=== PATIENT | female | born 1975 | race Caucasian/White ===

== ENCOUNTER 2019-05-19 19:37 | Observation (INO) | payer BC, MEDICAID ==
[2019-05-19] MEDS ORDERED: NORMAL SALINE 1000 ML 1,000 ML IV ONE (20:08)
--- NOTE | 2019-05-19 20:10 | ER Document Report ---
ED Medical Screen (RME) - General Chief Complaint: Abdominal Pain Stated Complaint: SEVERE ABDOMINAL PAIN POST C SECTION Time Seen by Provider: 05/19/19 20:06 Mode of Arrival: Ambulatory Information source: Patient Notes: 44-year-old female presented to ED for complaint of severe pain right upper quadrant with nausea starting about 640. She states it was a pulling pain underneath of her ribs then it got much worse she got very nauseated. She states she was in charge and got to the point where she had to get up and leave [facility] and it got much worse when she left the [facility]. She states on the right to the hospital she was writhing in pain all the way to the hospital. She states she is just delivered her child 5 weeks ago she has been emptying her bladder with no problems. She states the bladder was injured during her . She is alert oriented respirations regular and unlabored speaking in full sentences. She states the pain is much less now than it was on the way to the hospital. She states she is breast-feeding at this time. I have greeted and performed a rapid initial assessment of this patient. A comprehensive ED assessment and evaluation of the patient, analysis of test results and completion of medical decision making process will be conducted by an additional ED providers. TRAVEL OUTSIDE OF THE [place] IN LAST 30 DAYS: No Physical Exam - Vital signs Vitals: Temp Pulse Resp BP Pulse Ox 98 F 76 18 115/62 100 05/19/19 19:46 05/19/19 19:46 05/19/19 19:46 05/19/19 19:46 05/19/19 19:46 Course - Vital Signs Vital signs: Temp Pulse Resp BP Pulse Ox 98 F 76 18 115/62 100 05/19/19 19:46 05/19/19 19:46 05/19/19 19:46 05/19/19 19:46 05/19/19 19:46
[2019-05-19 20:41] LABS: ABSOLUTE BASOPHILS # (AUTO) 0.1 10^3/uL (0.0-0.2); ABSOLUTE EOSINOPHILS # (AUTO) 0.1 10^3/uL (0.0-0.6); ABSOLUTE LYMPHOCYTES (AUTO) 1.4 10^3/uL (0.5-4.7); ABSOLUTE MONOCYTES (AUTO) 0.8 10^3/uL (0.1-1.4); ABSOLUTE NEUT (AUTO) 11.4 10^3/uL (1.7-8.2); BASOPHILS % (AUTO) 0.5 % (0-2); EOSINOPHILS % (AUTO) 0.7 % (0-6); HEMATOCRIT 37.4 % (36.0-47.0); LYMPHOCYTES % (AUTO) 10.3 % (13-45); MEAN CORPUSCULAR HEMOGLOBIN 26.2 pg (27.0-33.4); MEAN CORPUSCULAR HGB CONC 32.1 g/dL (32.0-36.0); MEAN CORPUSCULAR VOLUME 82 fl (80-97); MONOCYTES % (AUTO) 6.1 % (3-13); PLATELET COUNT 217 10^3/uL (150-450); RED BLOOD COUNT 4.58 10^6/uL (3.72-5.28); RED CELL DISTRIBUTION WIDTH 16.6 % (11.5-14.0); SEGMENTED NEUTROPHILS % (AUTO) 82.4 % (42-78); TOTAL CELLS COUNTED % (AUTO) 100 %; WHITE BLOOD COUNT 13.8 10^3/uL (4.0-10.5)
[2019-05-19 21:13] LABS: APPEARANCE,URINE SLIGHTLY-CLOUDY; BILIRUBIN,URINE NEGATIVE (NEGATIVE); COLOR,URINE YELLOW; GLUCOSE, URINE NEGATIVE (NEGATIVE); KETONES,URINE NEGATIVE (NEGATIVE); LEUKOCYTE ESTERASE,URINE TRACE (NEGATIVE); NITRITE,URINE NEGATIVE (NEGATIVE); PROTEIN,URINE NEGATIVE (NEGATIVE); URINE SPECIFIC GRAVITY 1.015
[2019-05-19 21:31] LABS: ALBUMIN 4.4 g/dL (3.5-5.0); ALKALINE PHOSPHATASE 203 U/L (38-126); ANION GAP 11 (5-19); ASPARTATE AMINO TRANSFERASE 137 U/L (14-36); BILIRUBIN,DIRECT 0.3 mg/dL (0.0-0.4); BILIRUBIN,TOTAL 0.5 mg/dL (0.2-1.3); BLOOD UREA NITROGEN 17 mg/dL (7-20); CARBON DIOXIDE 27 mmol/L (22-30); CHLORIDE 101 mmol/L (98-107); GLUCOSE 109 mg/dL (75-110); POTASSIUM 3.9 mmol/L (3.6-5.0); TOTAL PROTEIN 7.2 g/dL (6.3-8.2)
--- NOTE | 2019-05-19 22:03 | ER Document Report ---
ED GI/ - General Chief Complaint: Abdominal Pain Stated Complaint: SEVERE ABDOMINAL PAIN POST C SECTION Time Seen by Provider: 05/19/19 20:06 Mode of Arrival: Ambulatory Notes: Patient is a 44-year-old female that comes to the emergency department for chief complaint of sharp pain in the right upper quadrant with nausea. Symptoms started prior to arrival and were severe, she states 2 hours ago it was extremely severe but it has significantly decreased. She still has pain and vague nausea but nowhere near previously. She denies fever/chills. She is 5 weeks status post at [facility], including a complication where they accidentally nicked her bladder and had to repair this and she was wearing a Miranda for about 1 week. She denies concerns or complications regards to this otherwise. Only other reported medical history is orthopedic surgery. She is breast-feeding. TRAVEL OUTSIDE OF THE [place] IN LAST 30 DAYS: No - Related Data Allergies/Adverse Reactions: No Known Allergies Allergy (Unverified 05/19/19 20:14) Past Medical History - General Information source: Patient - Social History Smoking Status: Never Smoker Frequency of alcohol use: None Drug Abuse: None Lives with: Family Family History: Reviewed & Not Pertinent Patient has suicidal ideation: No Patient has homicidal ideation: No Renal/ Medical History: Denies: Hx Peritoneal Dialysis Past Surgical History: Reports: Hx Section - Immunizations Hx Diphtheria, Pertussis, Tetanus Vaccination: Yes Review of Systems - Review of Systems Constitutional: No symptoms reported EENT: No symptoms reported Cardiovascular: No symptoms reported Respiratory: No symptoms reported Gastrointestinal: See HPI Genitourinary: No symptoms reported Female Genitourinary: No symptoms reported Musculoskeletal: No symptoms reported Skin: No symptoms reported Hematologic/Lymphatic: No symptoms reported Neurological/Psychological: No symptoms reported Physical Exam - Vital signs Vitals: Temp Pulse Resp BP Pulse Ox 98 F 76 18 115/62 100 05/19/19 19:46 05/19/19 19:46 05/19/19 19:46 05/19/19 19:46 05/19/19 19:46 - Notes Notes: GENERAL: Alert, interacts well. HEAD: Normocephalic, atraumatic. EYES: Pupils equal, round, and reactive to light. Extraocular movements intact. ENT: Oral mucosa moist, tongue midline. Oropharynx unremarkable. Airway patent. LUNGS: Clear to auscultation bilaterally, no wheezes, rales, or rhonchi. No respiratory distress. HEART: Regular rate and rhythm. No murmur ABDOMEN: Specifically tender in the right upper quadrant with wincing, however remaining abdomen is completely benign. Abdomen is still soft. Bowel sounds present. GENITOURINARY: Deferred EXTREMITIES: Moves all 4 extremities spontaneously. No edema, normal radial and dorsalis pedis pulses bilaterally. No cyanosis. BACK: no cervical, thoracic, lumbar midline tenderness. No saddle anesthesia, normal distal neurovascular exam. NEUROLOGICAL: Alert and oriented x3. Normal speech. Cranial nerves II through XII grossly intact. PSYCH: Normal affect, normal mood. SKIN: Warm, dry, normal turgor. No rashes or lesions noted. Course - Re-evaluation Re-evalutation: Patient does have right upper quadrant tenderness on my evaluation. Remaining abdomen is soft and benign. Vital signs unremarkable. Patient is not toxic in presentation. CBC shows leukocytosis with elevation of neutrophils but no bandemia. AST is slightly elevated, alk phos is also slightly elevated. Presentation is concerning for possible acute cholecystitis. Patient will be kept n.p.o., given IV fluids, patient declines pain medication. Right upper quadrant ultrasound showing chrissie-cholecystic fluid consistent with acute cholecystitis. Common bile duct unremarkable. Discussed with patient again, we will discuss with surgeon on-call, patient started on Zosyn. Discussed with Dr. Leung, patient will be admitted to the surgical service. Patient states understanding and agreement with plan. - Vital Signs Vital signs: Temp Pulse Resp BP Pulse Ox 98.6 F 78 18 135/56 H 100 05/20/19 02:37 05/20/19 02:37 05/20/19 02:37 05/20/19 02:37 05/20/19 02:37 - Laboratory Result Diagrams: 05/19/19 20:33 05/19/19 21:04 Laboratory results interpreted by me: 05/19/19 05/19/19 05/19/19 20:33 20:53 21:04 WBC 13.8 H MCH 26.2 L RDW 16.6 H Lymph % (Auto) 10.3 L Absolute Neuts (auto) 11.4 H Seg Neutrophils % 82.4 H AST 137 H Alkaline Phosphatase 203 H Urine Urobilinogen 4.0 H Ur Leukocyte Esterase TRACE H Discharge - Discharge Clinical Impression: Cholecystitis, Right upper quadrant pain Condition: Stable Disposition: ADMITTED OBSERVATION Admitting Provider: Surgicalist Unit Admitted: Surgical Floor
--- NOTE | 2019-05-19 22:23 | RADIOLOGY REPORT (SQ) ---
EXAM DESCRIPTION: RadLex: US ABDOMEN DOPPLER LIMITED CLINICAL HISTORY: 44 years Female; ruq abd pain 5 weeks , TECHNIQUE: Right upper quadrant ultrasound was performed. COMPARISON: None. FINDINGS: Pancreas: Visualized portions are unremarkable. Liver: 15.9 cm long. No intrahepatic ductal distention. Portal venous flow is hepatopedal, normal. Gallbladder: Multiple shadowing calculi. Wall is less than 3 mm. There is a small amount of pericholecystic fluid. Positive Bob's sign was elicited. Common bile duct: 4 mm. Right kidney: 10.7 x 4.4 x 6.3 cm. No hydronephrosis. IMPRESSION: 1. Cholelithiasis with pericholecystic fluid and positive Bob's sign, suggesting acute cholecystitis 2. No biliary ductal distention.
[2019-05-19] MEDS ORDERED: PIPERACILLIN/TAZOBACTAM 3.375 GM VIAL IV ONE ×2 (22:29→23:59)
--- NOTE | 2019-05-19 23:08 | PDOC H&P ---
History of Present Illness Patient complains of: Right upper quadrant pain History of Present Illness: KEISHA AGUIRRE is a 44 year old female, healthy, 5 weeks post complicated by bladder injury which was repaired intraoperatively, who presents to the emergency room with a history of epigastric right upper quadrant pain intense nausea. An ultrasound of the abdomen was done revealing the presence of cholelithiasis with inflammatory change of the gallbladder S with acute cholecystitis. Her blood work reveals a white blood cell count of 13 and a slight elevated AST and alkaline phosphatase. Social History Smoking Status: Never Smoker Family History Family History: Hypertension, Thyroid Disfunction Parental Family History Reviewed: No Children Family History Reviewed: No Sibling(s) Family History Reviewed.: No Medication/Allergy Home Medications: Hydrocodone/Acetaminophen [[place] 5-325 mg Tablet] 1 tab PO QPM 05/19/19 Ibuprofen [Motrin 800 mg Tablet] 800 mg PO QPM 05/19/19 Allergies/Adverse Reactions: No Known Allergies Allergy (Unverified 05/19/19 20:14) Physical Exam Vital Signs: Temp Pulse Resp BP Pulse Ox 98 F 76 18 115/62 100 05/19/19 19:46 05/19/19 19:46 05/19/19 19:46 05/19/19 19:46 05/19/19 19:46 Intake & Output 05/18/19 05/19/19 05/20/19 06:59 06:59 06:59 Intake Total 1000 Balance 1000 Weight 63.503 kg General appearance: PRESENT: no acute distress Head exam: PRESENT: atraumatic Eye exam: PRESENT: EOMI, PERRLA Mouth exam: PRESENT: moist, neck supple Neck exam: PRESENT: full ROM Respiratory exam: PRESENT: clear to auscultation kadi Cardiovascular exam: PRESENT: RRR GI/Abdominal exam: PRESENT: Bob's sign, normal bowel sounds, soft, other - Lower abdominal scar Extremities exam: PRESENT: full ROM Musculoskeletal exam: PRESENT: full ROM Neurological exam: PRESENT: alert, awake, oriented to time Psychiatric exam: PRESENT: appropriate affect Skin exam: PRESENT: warm Results Laboratory Results: 05/19/19 20:33 05/19/19 21:04 05/19/19 05/19/19 05/19/19 20:33 20:33 20:53 WBC 13.8 H RBC 4.58 Hgb 12.0 Hct 37.4 MCV 82 MCH 26.2 L MCHC 32.1 RDW 16.6 H Plt Count 217 Seg Neutrophils % 82.4 H Sodium Cancelled Potassium Cancelled Chloride Cancelled Carbon Dioxide Cancelled Anion Gap Cancelled BUN Cancelled Creatinine Cancelled Est GFR ( Amer) Cancelled Est GFR (Non-Af Amer) Cancelled Glucose Cancelled Calcium Cancelled Total Bilirubin Cancelled AST Cancelled Alkaline Phosphatase Cancelled Total Protein Cancelled Albumin Cancelled Lipase Cancelled Urine Color YELLOW Urine Appearance SLIGHTLY-CLOUDY Urine pH 9.0 Ur Specific [place] 1.015 Urine Protein NEGATIVE Urine Glucose (UA) NEGATIVE Urine Ketones NEGATIVE Urine Blood NEGATIVE Urine Nitrite NEGATIVE Ur Leukocyte Esterase TRACE H Urine WBC (Auto) 9 Urine RBC (Auto) 2 05/19/19 21:04 WBC RBC Hgb Hct MCV MCH MCHC RDW Plt Count Seg Neutrophils % Sodium 139.2 Potassium 3.9 Chloride 101 Carbon Dioxide 27 Anion Gap 11 BUN 17 Creatinine 0.60 Est GFR ( Amer) > 60 Est GFR (Non-Af Amer) Glucose 109 Calcium 9.0 Total Bilirubin 0.5 AST 137 H Alkaline Phosphatase 203 H Total Protein 7.2 Albumin 4.4 Lipase 148.1 Urine Color Urine Appearance Urine pH Ur Specific [place]ruff Urine Protein Urine Glucose (UA) Urine Ketones Urine Blood Urine Nitrite Ur Leukocyte Esterase Urine WBC (Auto) Urine RBC (Auto) Impressions: Abdomen Ultrasound 05/19/19 20:06 IMPRESSION: 1. Cholelithiasis with pericholecystic fluid and positive Bob's sign, suggesting acute cholecystitis 2. No biliary ductal distention. Assessment & Plan - Diagnosis (1) Cholelithiasis and acute cholecystitis without obstruction Is this a current diagnosis for this admission?: Yes - Plan Summary Plan Summary: Assessment: Healthy 44-year-old female freq 5 weeks post complicated by bladder injury repaired intraoperatively Right upper quadrant pain and epigastric pain Ultrasound of the liver reveals inflamed gallbladder with pericholecystic fluid borderline thickening of the gallbladder wall and cholelithiasis Normal size Betaject Mild leukocytosis 13,000 Slight elevation of the AST and alkaline phosphatase Plan: Admission N.p.o. IV fluids Continue IV Zosyn 3.375 g IV piggyback every 6 hours IV morphine for pain control I am recommending the patient to breast-feed her baby tonight; however, she should refrain from breast-feeding tomorrow and she should only pump her breast milk and discard it for first 24 hours after surgery.
[2019-05-19] MEDS ORDERED: MORPHINE SULFATE 10 MG/ML INJ IV PRN (23:09)
[2019-05-19] MEDS ORDERED: ONDANSETRON HCL INJ/PF 4 MG/2 ML SDV IV PRN (23:09)
[2019-05-19] MEDS: NORMAL SALINE 1000 ML 1,000 ML IV PRN (23:28)
[2019-05-20 05:57] LABS: ABSOLUTE EOSINOPHILS # (AUTO) 0.1 10^3/uL (0.0-0.6); ABSOLUTE LYMPHOCYTES (AUTO) 1.4 10^3/uL (0.5-4.7); ABSOLUTE MONOCYTES (AUTO) 0.5 10^3/uL (0.1-1.4); ABSOLUTE NEUT (AUTO) 4.4 10^3/uL (1.7-8.2); BASOPHILS % (AUTO) 0.3 % (0-2); EOSINOPHILS % (AUTO) 0.9 % (0-6); HEMATOCRIT 34.5 % (36.0-47.0); HEMOGLOBIN 11.1 g/dL (12.0-15.5); LYMPHOCYTES % (AUTO) 22.3 % (13-45); MEAN CORPUSCULAR HEMOGLOBIN 26.1 pg (27.0-33.4); MEAN CORPUSCULAR HGB CONC 32.1 g/dL (32.0-36.0); MEAN CORPUSCULAR VOLUME 81 fl (80-97); MONOCYTES % (AUTO) 7.8 % (3-13); PLATELET COUNT 196 10^3/uL (150-450); RED BLOOD COUNT 4.24 10^6/uL (3.72-5.28); RED CELL DISTRIBUTION WIDTH 16.3 % (11.5-14.0); SEGMENTED NEUTROPHILS % (AUTO) 68.7 % (42-78); TOTAL CELLS COUNTED % (AUTO) 100 %; WHITE BLOOD COUNT 6.5 10^3/uL (4.0-10.5)
[2019-05-20 06:16] LABS: ALBUMIN 3.5 g/dL (3.5-5.0); ALKALINE PHOSPHATASE 206 U/L (38-126); ANION GAP 8 (5-19); ASPARTATE AMINO TRANSFERASE 468 U/L (14-36); BILIRUBIN,DIRECT 0.4 mg/dL (0.0-0.4); BILIRUBIN,TOTAL 0.7 mg/dL (0.2-1.3); BLOOD UREA NITROGEN 11 mg/dL (7-20); CALCIUM 8.4 mg/dL (8.4-10.2); CARBON DIOXIDE 24 mmol/L (22-30); CHLORIDE 108 mmol/L (98-107); GLUCOSE 97 mg/dL (75-110); TOTAL PROTEIN 5.9 g/dL (6.3-8.2)
[2019-05-20] MEDS: NORMAL SALINE 1000 ML 1,000 ML IV PRN ×2 (09:13→17:52)
[2019-05-20] MEDS ORDERED: BUPIVACAINE HCL 0.25 % INJ/PF (2.5 MG/1 ML) 30 ML VIAL ONE (10:03)
[2019-05-20] MEDS: FAMOTIDINE INJ/PF 20 MG/2 ML SDV IV SCH ×2 (10:54→21:31)
[2019-05-20] MEDS ORDERED: FENTANYL CITRATE INJ/PF 100 MCG/2 ML AMPUL ONE (12:08)
[2019-05-20] MEDS ORDERED: MIDAZOLAM 2 MG/2 ML INJ ONE (12:08)
[2019-05-20] MEDS ORDERED: DEXAMETHASONE SOD PHOSPHATE INJ 4 MG/1 ML VIAL ONE (12:08)
[2019-05-20] MEDS ORDERED: ONDANSETRON HCL INJ/PF 4 MG/2 ML SDV ONE (12:09)
[2019-05-20] MEDS ORDERED: SUGAMMADEX SODIUM 200 MG/2 ML SDV IV ONE (12:09)
[2019-05-20] MEDS ORDERED: PROPOFOL INJ 200 MG/20 ML VIAL IV ONE (12:09)
[2019-05-20] MEDS ORDERED: ONDANSETRON HCL INJ/PF 4 MG/2 ML SDV IV PRN ×2 (14:15→14:42)
[2019-05-20] MEDS ORDERED: FENTANYL CITRATE INJ/PF 100 MCG/2 ML AMPUL IV PRN ×3 (14:15)
[2019-05-20] MEDS ORDERED: MEPERIDINE HCL/PF INJ 25 MG/1 ML DISP.SYRIN IV PRN (14:15)
[2019-05-20] MEDS ORDERED: DIPHENHYDRAMINE HCL 50 MG/ML VIAL IV PRN (14:15)
[2019-05-20] MEDS ORDERED: PROMETHAZINE HCL INJ 25 MG/1 ML VIAL IV PRN ×2 (14:15)
[2019-05-20] MEDS ORDERED: MORPHINE SULFATE 10 MG/ML INJ IV PRN (14:15)
[2019-05-20] MEDS ORDERED: SUCCINYLCHOLINE CHLORIDE INJ 200 MG/10 ML VIAL ONE (14:27)
[2019-05-20] MEDS ORDERED: ROCURONIUM BROMIDE INJ 50 MG/5 ML VIAL IV ONE (14:27)
[2019-05-20] MEDS ORDERED: KETOROLAC TROMETHAMINE 10 MG TABLET PO PRN (14:42)
[2019-05-20] MEDS ORDERED: KETOROLAC TROMETHAMINE INJ/PF 30 MG/1 ML SDV IV PRN (14:42)
--- NOTE | 2019-05-20 14:42 | Operative Report ---
Operative Report DATE OF SURGERY: 05/20/19 PREOPERATIVE DIAGNOSIS: Acute cholecystitis with cholelithiasis POSTOPERATIVE DIAGNOSIS: Same OPERATION: Laparoscopic cholecystectomy SURGEON: KAYODE DELANEY ANESTHESIA: GA TISSUE REMOVED OR ALTERED: Gallbladder with contents COMPLICATIONS: None ESTIMATED BLOOD LOSS: Scant INTRAOPERATIVE FINDINGS: See below PROCEDURE: After obtaining informed consent, the patient was taken to the operating room. General Anesthesia was induced; the arms were extended, and the abdomen was exposed, and prepped and draped in a sterile fashion. Instrumentation was set up for laparoscopic cholecystectomy. Surgical plan and surgical timeout were conducted. A vertical incision was made above the umbilicus, and a verres needle was inserted uneventfully into the peritoneal cavity. Pneumoperitoneum was established. The verres needle was removed and a 5 mm trocar was inserted and a 5 mm flexible laparoscope was inserted. Visualization of the peritoneal cavity confirmed safe uneventful entry. Under direct visualization 3 additional 5 mm ports were es tablished, one in the subxiphoid position and second in the subcostal position. The scope was directed to the pelvis, and the uterus, tubes and ovaries were visualized. There were adhesions between the anterior surface of the uterus and the anterior wall. Photos taken. Visualization of the hepatobiliary anatomy revealed no anatomic variations. A grasper was placed on the fundus of the gallbladder and the gallbladder is elevated over the right surface of the liver; a second grasper was used to grasp the infundibulum of the gallbladder. The neck of the gallbladder and junction with the cystic duct was dissected out. The Cystic artery was in its usual location medial and cephalad to the cystic duct. The cystic artery was surrounded with a right angle clamp, clipped twice proximally and divided with laparoscopic scissors. We now opened the triangle of Calot by dividing the peritoneal reflection on both the medial and lateral sides of the cystic duct infundibular junction. The critical view was obtained. We now milked the cystic duct of any possible stones, clipped the cystic duct approximately 2 times once distally and divided with scissors. The gallbladder was now removed from the undersurface of the liver using hook cautery dissection. Graspers were repositioned and the gallbladder was removed uneventfully from the abdominal cavity through the super umbilical port site incision. The specimen was examined, then passed off to pathology for permanent analysis. We returned to the peritoneal cavity check for bleeding, and evidence of bile leak, and there was none. We Confirmed satisfactory placement of clips on cystic duct and cystic artery were secured . At this point we felt the operation was complete. The subcutaneous tissue was then anesthetized with quarter percent Marcaine Sponge and needle counts are correct. All ports removed under direct visualization pneumoperitoneum evacuated, and 5 mm port wounds closed with 3-0 Vicryl suture, benzoin and Steri-Strips. The patient was extubated, and taken to the recovery room in stable condition.
[2019-05-20] MEDS ORDERED: PIPERACILLIN SODIUM/TAZOBACTAM 3.375 GM in NORMAL SALINE 100 ML IV ONE ×2 (15:00→17:30)
[2019-05-20] MEDS ORDERED: ACETAMINOPHEN 1,000 MG/100 ML RTUPB IV ONE (15:28)
[2019-05-20] MEDS ORDERED: KETOROLAC TROMETHAMINE INJ/PF 30 MG/1 ML SDV ONE (15:28)
[2019-05-20] MEDS ORDERED: ACETAMINOPHEN INJ/PF 1000 MG/100 ML SDV IV SCH (18:00)
[2019-05-20] MEDS: ACETAMINOPHEN INJ/PF 1000 MG/100 ML SDV IV SCH (21:35)
[2019-05-21] MEDS: ACETAMINOPHEN INJ/PF 1000 MG/100 ML SDV IV SCH ×2 (03:56→09:38)
[2019-05-21] MEDS: NORMAL SALINE 1000 ML 1,000 ML IV PRN (04:02)
--- NOTE | 2019-05-21 07:43 | PDOC DISCHARGE SUMMARY ---
General - Admit/Disc Date/PCP Admission Date/Primary Care Provider: 05/19/19 22:52 05/19/19 Discharge Date: 05/21/19 - Additional Information Resuscitation Status: Full Code Discharge Diet: As Tolerated Discharge Activity: Activity As Tolerated, No Lifting Over 10 Pounds Home Medications: Levothyroxine Sodium [Synthroid 0.075 mg Tablet] 0.075 mg PO DAILY 05/20/19 Prenat 115/Iron Fum/Folic/Dss [ 19 Tablet] 1 each PO DAILY 05/20/19 History of Present Illness History of Present Illness: KEISHA AGUIRRE is a 44 year old femaleKEISHA AGUIRRE is a 44 year old female, healthy, 5 weeks post complicated by bladder injury which was repaired intraoperatively, who presents to the emergency room with a history of epigastric right upper quadrant pain intense nausea. An ultrasound of the abdomen was done revealing the presence of cholelithiasis with inflammatory change of the gallbladder S with acute cholecystitis. Her blood work reveals a white blood cell count of 13 and a slight elevated AST and alkaline phosphatase. [facility] for lap taovn. tobi well, now pod 1. tobi reg diet ready for dc home Physical Exam Vital Signs: Temp Pulse Resp BP Pulse Ox 98.0 F 57 L 16 120/61 98 05/21/19 05:25 05/21/19 05:25 05/21/19 05:25 05/21/19 05:25 05/21/19 05:25 Intake & Output 05/20/19 05/21/19 05/22/19 06:59 06:59 06:59 Intake Total 1000 4210 Output Total 523 Balance 1000 3687 Weight 63.5 kg General appearance: PRESENT: no acute distress Head exam: PRESENT: normocephalic Eye exam: PRESENT: EOMI Ear exam: PRESENT: normal external ear exam Mouth exam: PRESENT: moist Neck exam: PRESENT: full ROM Respiratory exam: PRESENT: clear to auscultation kadi Cardiovascular exam: PRESENT: RRR Pulses: PRESENT: normal radial pulses, normal femoral pulses GI/Abdominal exam: PRESENT: soft Rectal exam: PRESENT: deferred Extremities exam: PRESENT: full ROM Musculoskeletal exam: PRESENT: ambulatory, full ROM Neurological exam: PRESENT: alert, awake, oriented to person, oriented to place Psychiatric exam: PRESENT: appropriate affect Skin exam: PRESENT: dry Results Laboratory Results: 05/20/19 05:31 05/20/19 05:31 Impressions: Abdomen Ultrasound 05/19/19 20:06 IMPRESSION: 1. Cholelithiasis with pericholecystic fluid and positive Bob's sign, suggesting acute cholecystitis 2. No biliary ductal distention. Qualifiers - * PATIENT BEING DISCHARGED WITH ANY OF THE FOLLOWING DIAGNOSIS: No VTE patient discharged on overlapping Therapy?: No Reason(s) for not prescribing Overlap Therapy:: Not indicated Reason(s) for not prescribing Anti-thrombolytic therapy:: Not indicated Reason(s) for not prescribing Anti-coagulation therapy:: Not indicated Reason(s) for not prescribing Statins therapy:: Not indicated Reason(s) for not prescribing Aspirin therapy:: Not indicated Reason(s) for not prescribing Statin therapy:: Not indicated Reason(s) for not prescribing ACEI/ARBS:: Not indicated Acute Heart Failure - Is this a Heart Failure Patient?: No Plan Time Spent: Less than 30 Minutes - pt will f/u in surgery clinic in 7-10 days
[2019-05-21] MEDS: FAMOTIDINE INJ/PF 20 MG/2 ML SDV IV SCH (09:38)
[2019-05-21 13:04] VITALS: BP 120/68
== END 2019-05-21 15:05 | disposition home or self-care (01) ==
LOC: ER 19:37 → EH 22:52 → 2N 05-20 02:00
PROVIDERS: ATTEND Surgery
PROC: 0FT44ZZ Resection of Gallbladder, Percutaneous Endoscopic Approach (ICD-10-PCS; principal; 2019-05-20 13:00)
DX: O99.63 Diseases of the digestive system complicating the puerperium (principal); K80.10 Calculus of gallbladder with chronic cholecystitis without obstruction; Z79.899 Other long term (current) drug therapy; Z98.890 Other specified postprocedural states
CPT/HCPCS: 99285; 96361; 96365; 36415 ×2; 83690; 85025 ×2; 80053 ×2; 81001; 88304 ×2; 76705; 93976; 00790; 47562; G0378 ×4; J2250; J3490 ×2; J1100; J3010; J1885 ×2; J2270; J0330; J2405; S0020; J7050; J7030 ×3; J2704; S0028 ×2; J2543 ×2; J0131 ×2; 790